=== PATIENT | male | born 1965 | race Caucasian/White ===

== ENCOUNTER 2016-09-11 11:14 | Emergency (ER) | payer OTHER | END 2016-09-11 13:25 | disposition home or self-care (01) | LOC: ER 11:14 | DX: S97.81XA Crushing injury of right foot, initial encounter (principal); R56.9 Unspecified convulsions; Z79.899 Other long term (current) drug therapy; W20.8XXA Other cause of strike by thrown, projected or falling object, initial encounter; Y92.410 Unspecified street and highway as the place of occurrence of the external cause ==